=== PATIENT | female | born 1955 | race African-American/Black ===

== ENCOUNTER → 2022-03-07 | Day surgery (SDC) | payer MEDICARE, OTHER ==
[2022-03-04 15:24] LABS: BASOPHILS # (AUTO) 0.1 (0.0-0.1); BASOPHILS % 2.2 % (0.0-1.0); EOSINOPHILS # (AUTO) 0.2 (0.0-0.4); EOSINOPHILS % 4.4 % (0.0-6.0); HEMATOCRIT 45.1 % (34.2-44.1); HEMOGLOBIN 14.5 g/dL (12.0-16.0); LYMPHOCYTES # (AUTO) 2.6 (1.0-3.2); LYMPHOCYTES % 65.2 % (18.0-39.1); MEAN CORPUSCULAR HEMOGLOBIN 29.2 pg (28-32); MEAN CORPUSCULAR HGB CONC 32.2 g/dL (31-35); MEAN CORPUSCULAR VOLUME 90.9 fL (81-99); MONOCYTES # (AUTO) 0.2 (0.2-0.8); NEUTROPHILS % 24.2 % (38.7-80.0); PLATELET COUNT 296 x10e3/uL (140-360); RED BLOOD COUNT 4.96 x10e6/uL (3.6-5.1); RED CELL DISTRIBUTION WIDTH 12.8 % (11.7-14.4)
[2022-03-04 16:25] LABS: EOSINOPHILS % (MANUAL) 4 % (0-7); LYMPHOCYTES % (MANUAL) 50 % (19-48); MONOCYTES % (MANUAL) 4 % (3.4-9.0); NEUTROPHILS % (MANUAL) 22 % (40-74); PLATELET ESTIMATE ADEQUATE; PLATELET MORPHOLOGY COMMENT FEW LARGE; RBC MORPHOLOGY COMMENT NORMAL
[~2022-03-07] MED LIST: ASPIRIN81 MG PO; ATORVASTATIN CA20 MG PO; CENTRUM ADULTS1 EACH PO; EPHEDRINE SULFATE INJ 50 MG/ML VIAL ONE; FENTANYL CITRATE/PF 100MCG/2 ML INJ ONE; FLONASE ALLERG9.9 ML INH; FUROSEMIDE40 MG PO; HYDROCHLOROTH12.5 MG PO; HYOSCYAMINE SULFATE 0.5 MG/ML INJ ONE; METOCLOPRAMIDE HCL 10 MG/2ML VIAL ONE; METOPROLOL SUCC50 MG PO; MIDAZOLAM HCL 2 MG/2 ML VIAL ONE; MULTI-VITAMIN1 EACH PO; NIFEDIPINE10 MG PO; PROPOFOL IV EMULSION 10 MG/ML 20 ML VIAL ONE; SYMBICORT 16010.2 GM INH; VENTOLIN HFA18 GM INH; VICODIN HP 10-1 EAC1 PO; [UNRECOGNIZED DRUG - OTHER] PO
[2022-03-07 13:40] VITALS: BP 157/94
[2022-03-07 13:46] LABS: WBC,FECAL (FECAL LACTOFERRIN) NEGATIVE (NEGATIVE)
[2022-03-08 13:34] LABS: C DIFFICILE TOXIN A&B AMP PROB NEGATIVE (NEGATIVE)
[2022-03-12 05:12] LABS: ENDOMYSIAL ANTIBODIES, IGA Negative (Negative)
== END | disposition home or self-care (01) ==
LOC: OR 09:13
PROVIDERS: ATTEND Internal Medicine Gastroenterology
DX: K29.70 Gastritis, unspecified, without bleeding (principal); Z98.890 Other specified postprocedural states; K22.89 Other specified disease of esophagus; R19.7 Diarrhea, unspecified; R63.4 Abnormal weight loss; K21.9 Gastro-esophageal reflux disease without esophagitis; K62.89 Other specified diseases of anus and rectum; K57.30 Diverticulosis of large intestine without perforation or abscess without bleeding; K63.89 Other specified diseases of intestine; D72.820 Lymphocytosis (symptomatic); I10 Essential (primary) hypertension; J45.909 Unspecified asthma, uncomplicated; D57.3 Sickle-cell trait; M54.9 Dorsalgia, unspecified; R53.1 Weakness; H91.90 Unspecified hearing loss, unspecified ear; E78.5 Hyperlipidemia, unspecified; F41.9 Anxiety disorder, unspecified; Z88.6 Allergy status to analgesic agent; Z91.013 Allergy to seafood; F17.200 Nicotine dependence, unspecified, uncomplicated; Z01.812 Encounter for preprocedural laboratory examination; Z20.822 Contact with and (suspected) exposure to COVID-19; Z79.82 Long term (current) use of aspirin; Z79.899 Other long term (current) drug therapy; Z86.19 Personal history of other infectious and parasitic diseases
CPT/HCPCS: 36415; 43239; 45380; 82784; 83516; 83630; 83993; 85025; 86256; 87045; 87177; 87328; 87493; C9113; J1980; J2250; J2704; J2765; J3010; U0002; 45378